=== PATIENT | male | born 1945 | race Caucasian/White ===

== ENCOUNTER 2016-12-10 14:24 | Observation (INO) | payer MEDICARE, OTHER ==
--- NOTE | ~2016-12-10 | HP ---
History And Physical [place] [id number] [facility] [place]. [address] NAME: SHAWNA SWEENEY : 43 STATUS : DIS Tamika PAT#: [id number] AGE: 71 ADM/REG DATE : 12/10/16 MR#: [id number] REPORT SERV DATE: 12/12/16 DICTATED BY: MAUDE CONNELL JR. DATE: 12/10/16 REPORT STATUS : Draft TRANSCRIBED BY: KEENA DATE: 12/10/16 DATE OF ADMISSION: 12/10/2016 CHIEF COMPLAINT: Shortness of breath and abnormal EKG. HISTORY OF PRESENT ILLNESS: Mr. Sweeney is a 71-year-old male, who is status post CABG in 1999. The patient had some exertional shortness of breath, but no recent precordial chest pain. He underwent exercise treadmill stress testing at [facility] this afternoon. Redeveloped dariusz inferior ST-elevation with reciprocal lateral ST depression. The patient had exertional shortness of breath and some diaphoresis and weakness. With this, after 9 minutes, his ST elevation has come close back to baseline. He denies precordial chest pain. He complains of lightheadedness and presyncope. PAST MEDICAL HISTORY: Coronary artery disease with 5-vessel bypass in 1999. He has mixed hyperlipidemia, hypertension, type 2 diabetes, grade 1 carotid stenosis. He denies prior TIA or stroke. ALLERGIES: IV CONTRAST. CURRENT MEDICATIONS: Please see the home medication sheet. SOCIAL HISTORY: He does not smoke, abuse alcohol, or use recreational drugs. FAMILY HISTORY: Significant for mid-to-late life vascular events. REVIEW OF SYSTEMS: He denies bleeding diathesis, fever or chills, sudden weight gain or weight loss. Remainder as in the HPI or negative. PHYSICAL EXAMINATION: VITAL SIGNS: Blood pressure 132/78, heart rate 70, respirations 18 to 20. GENERAL: Anxious-appearing elderly male, but in no acute distress. HEENT: Anicteric. No scleral injection. No oral lesions. NECK: No JVD. Supple. No bruits. LUNGS: Clear to auscultation. No hyperexpansion. CARDIOVASCULAR: Regular rate and rhythm with a 1/6 systolic ejection murmur. ABDOMEN: Soft, nontender. Normoactive bowel sounds. No hepatosplenomegaly. EXTREMITIES: No clubbing, cyanosis or edema. SKIN: No visible rashes. NEURO/PSY: Normal affect, alert and oriented x3. LABORATORY DATA: Pending. EKG: EKG revealed dariusz ST-elevation in inferior leads with reciprocal lateral changes concerning for an injury pattern. This is now close to normalize. History And Physical [address] [place]. [address] NAME: SHAWNA SWEENEY : 43 STATUS : DIS Tamika PAT#: [id number] AGE: 71 ADM/REG DATE : 12/10/16 MR#: [id number] REPORT SERV DATE: 12/12/16 DICTATED BY: MAUDE CONNELL JR. DATE: 12/10/16 REPORT STATUS : Draft TRANSCRIBED BY: KEENA DATE: 12/10/16 MEDICAL DECISION MAKIN. Abnormal EKG with injury pattern. The risks and benefits of left heart catheterization and percutaneous intervention were explained, verbalized, and accepted. There are no perceived contraindications to drug-eluting stent placement. We will give IV Benadryl and IV Solu-Medrol for his IV dye reaction. We will give heparin 5000 x1 as well as aspirin 325 mg daily. This is an urgent/emergent procedure. 2. Mixed hyperlipidemia. We will transition to intensive statin therapy pending LFT evaluation which has been an issue for him in the past. 3. Diabetes. We will employ sliding scale insulin during this hospital stay. 4. Hypertension. We will continue home-based medical therapy. ZANDER/KEENA Maude Connell Jr., M.D. / [id number] CC: Mi Faust Jr., M.D. Andrew H Fowler, M.D.
[~2016-12-10 14:24] MED LIST: ALTA2.5 PO; ASAB PO; CELEBREX2 PO; HYDROCHLOROT25 MG PO; MULTIPLE VIT PO; NORV10 PO; PRAVAC PO; SENTAB PO; TOPXL25 PO; ULTRAM50 PO
[2016-12-10] MEDS ORDERED: MCZ25 PO (15:49)
[2016-12-10] MEDS ORDERED: ZOFRAN4 PO (15:50)
[2016-12-10 19:00] LABS: CPK 64 U/L (0-200)
[2016-12-10 19:01] LABS: CK-MB 0.7 NG/ML
[2016-12-11 05:06] LABS: HEMATOCRIT 40.9 % (40.0-51.0); HEMOGLOBIN 14.4 g/dL (13.6-17.8)
[2016-12-11 05:30] LABS: BUN (BLOOD UREA NITROGEN) 18 MG/DL (6-23); CALCIUM, SERUM 9.1 MG/DL (8.5-10.4); CHLORIDE, SERUM 105 MMOL/L (96-112); CPK 81 U/L (0-200); CREATININE 1.04 MG/DL (0.70-1.30); GFR AFRICAN AMERICAN 83 ML/MIN (>=60); GFR NON AFRICAN AMERICAN 71 ML/MIN (>=60); POTASSIUM, SERUM 3.7 MMOL/L (3.5-5.3); SODIUM, SERUM 140 MMOL/L (135-148)
[2016-12-11 05:39] LABS: CK-MB 4.5 NG/ML; CO2 (CARBON DIOXIDE) 24 MMOL/L (24-34); GLUCOSE, SERUM 228 MG/DL (60-99)
[2016-12-11] MEDS ORDERED: BRILINTA90 MG PO (10:16)
[2016-12-11] MEDS ORDERED: LIPITOR40 PO (10:16)
== END 2016-12-11 10:58 | disposition home or self-care (01) ==
LOC: SSU2 14:24 → SSU1 15:21
PROVIDERS: Internal Medicine Cardiovascular Disease
DX: I25.110 Atherosclerotic heart disease of native coronary artery with unstable angina pectoris (principal); I10 Essential (primary) hypertension; E78.2 Mixed hyperlipidemia; E11.9 Type 2 diabetes mellitus without complications; E78.00 Pure hypercholesterolemia, unspecified; N40.0 Benign prostatic hyperplasia without lower urinary tract symptoms; R94.39 Abnormal result of other cardiovascular function study; I65.21 Occlusion and stenosis of right carotid artery; Z91.041 Radiographic dye allergy status; Z79.82 Long term (current) use of aspirin; Z79.899 Other long term (current) drug therapy; Z95.1 Presence of aortocoronary bypass graft; Z98.41 Cataract extraction status, right eye; Z98.42 Cataract extraction status, left eye; Z98.890 Other specified postprocedural states; Z98.52 Vasectomy status; Z90.49 Acquired absence of other specified parts of digestive tract
CPT/HCPCS: 80048; 80053; 82550; 82553; 82962; 84484; 85014; 85018; 85025; 85347; 85610; 85730; 93005; 93017; 93306; 93459; 99152; 99153; A9270-GY; C1725; C1760; C1769; C1874; C1894; C9600; G0378; J1200; J2250; J2930; J3010; Q9967